=== PATIENT | female | born 1935 | race Caucasian/White ===

== ENCOUNTER 2020-11-06 05:30 | Day surgery (SDC) | payer OTHER ==
[2020-11-05 12:03] VITALS: BMI 28.3
[2020-11-06] MEDS ORDERED: LIDOCAINE HCL 1% PRESERVATIVE FREE - 30ML VIAL IJ ONE (12:23)
[2020-11-06] MEDS ORDERED: IOHEXOL 180 MG/1 ML ML IJ ONE (12:25)
[2020-11-06] MEDS ORDERED: DEXAMETHASONE SOD PHOSPHATE 10 MG/1 ML VIAL IM ONE (12:27)
[2020-11-06 13:09] VITALS: TEMP 97.4
[2020-11-06 13:54] VITALS: BP 141/60; PULSE 66
== END 2020-11-06 13:40 | disposition home or self-care (01) ==
LOC: JASU-SURG 05:30
PROVIDERS: ATTEND Pain Medicine Pain Medicine
PROC: 3E0R33Z Introduction of Anti-inflammatory into Spinal Canal, Percutaneous Approach (ICD-10-PCS; 2020-11-06)
PROC: 3E0R3BZ Introduction of Anesthetic Agent into Spinal Canal, Percutaneous Approach (ICD-10-PCS; principal; 2020-11-06 11:15)
DX: M54.16 Radiculopathy, lumbar region (principal)
CPT/HCPCS: 76000-TC-FY; J1100